=== PATIENT | male | born 1995 | race Caucasian/White ===

== ENCOUNTER 2019-05-10 18:56 | Emergency (ER) | payer OTHER ==
[~2019-05-10] VITALS: Ht 167.6 cm; Wt 89.0 kg
[~2019-05-10 18:56] MED LIST: NOCURR
[2019-05-10] MEDS ORDERED: HYDROCODONE/ACETAMINOPHEN 5-325 MG TABLET PO ONE (20:00)
[2019-05-10 20:20] VITALS: BP 128/76
[2019-05-10] MEDS ORDERED: HYDROGEN PEROXIDE 118 ML SOLUTION ONE (20:31)
== END 2019-05-10 20:45 | disposition home or self-care (01) ==
LOC: EMS 18:56
DX: S67.191A Crushing injury of left index finger, initial encounter (principal); W23.0XXA Caught, crushed, jammed, or pinched between moving objects, initial encounter; Y93.89 Activity, other specified; Y92.89 Other specified places as the place of occurrence of the external cause; Y99.8 Other external cause status